=== PATIENT | female | born 1950 | race Hispanic/Latino ===

== ENCOUNTER 2016-03-02 09:24 | Outpatient (CLI) | payer MEDICARE, OTHER ==
[2016-03-02 12:58] LABS: ALT (SGPT) 73 U/L (0-55); AST (SGOT) 38 U/L (5-34); Alkaline Phosphatase 147 U/L (40-150); Anion Gap 15 mmol/L (10-20); BUN (Urea Nitrogen) 13 mg/dL (9.8-20.1); Bilirubin, Total 0.6 mg/dL (0.2-1.2); Calc. Creatinine Clearance 0 mL/min (70-130); Calcium 9.1 mg/dL (7.8-10.44); Carbon Dioxide 24 mmol/L (23-31); Chloride 105 mmol/L (98-107); Estimated GFR-MDRD 60; Globulin 2.8 g/dL (2.4-3.5); LDL Cholesterol, Calculated 165 mg/dL; Protein, Total 7.5 g/dL (5.8-8.1)
[2016-03-02 13:46] LABS: Bilirubin Negative (Negative); Blood, Urine Trace (Negative); Glucose, Urine (Dipstick) 500 mg/dL (Negative); Ketone, Urine Negative (Negative); Nitrite Negative (Negative); Protein, Urine (Dipstick) > or equal to 300 mg/dL (Neg-Trace); Urobilinogen 0.2 mg/dL (0.2-1.0)
[2016-03-02 14:07] LABS: Bacteria/HPF 1+ HPF (None Seen); RBC/HPF 0-3 HPF (0-3); Squamous Epithelial 21-50 HPF (0-3); WBC/HPF 0-3 HPF (0-3)
[2016-03-02 14:26] LABS: #Basophils 0.1 thou/uL (0.0-0.2); #Eosinphils 0.3 thou/uL (0.0-0.7); #Lymphocytes 2.8 thou/uL (1.20-3.40); #Monocytes 0.5 thou/uL (0.11-0.59); #Neutrophils 3.2 thou/uL (1.40-6.50); %Basophils 0.8 % (0.0-1.0); %Eosinophils 4.1 % (0.0-10.0); %Lymphocytes 41.7 % (21.0-51.0); %Monocytes 6.8 % (0.0-10.0); Hematocrit 41.9 % (36.0-47.0); Mean Platelet Volume 6.6 fL (7.4-10.4); Red Blood Cell (RBC) Count 4.54 mill/uL (4.20-5.40); White Blood Cell (WBC) Count 6.8 thou/uL (4.8-10.8)
[2016-03-02 14:58] LABS: Hemoglobin A1c 8.2 % (4.0-6.0)
[2016-03-02 19:06] LABS: Microalbumin Urine 2.5 mg/dL (0.5-50.0)
== END 2016-03-02 09:25 ==
LOC: NAVSJIPCSP 09:24
PROVIDERS: ATTEND Internal Medicine
DX: E78.2 Mixed hyperlipidemia (principal); E11.9 Type 2 diabetes mellitus without complications; Z79.899 Other long term (current) drug therapy
CPT/HCPCS: 36415; 80053; 80061; 81003; 81015; 82043; 82570; 83036; 85025

== ENCOUNTER 2016-05-19 08:50 | Emergency (ER) | payer MEDICARE, OTHER ==
[2016-05-19 09:39] LABS: Bilirubin Negative (Negative); Blood, Urine Trace (Negative); Clarity Clear (Clear); Glucose, Urine (Dipstick) 500 mg/dL (Negative); Leukocyte Negative (Negative); Nitrite Negative (Negative); Protein, Urine (Dipstick) 100 mg/dL (Neg-Trace); Urobilinogen 0.2 mg/dL (0.2-1.0); pH, Urine 5.5 (5.0-9.0)
[2016-05-19 09:50] LABS: #Basophils 0.1 thou/uL (0.0-0.2); #Eosinphils 0.2 thou/uL (0.0-0.7); #Lymphocytes 2.9 thou/uL (1.20-3.40); #Monocytes 0.5 thou/uL (0.11-0.59); #Neutrophils 3.1 thou/uL (1.40-6.50); %Basophils 1.1 % (0.0-1.0); %Eosinophils 2.9 % (0.0-10.0); %Lymphocytes 42.9 % (21.0-51.0); %Monocytes 6.8 % (0.0-10.0); %Neutrophils 46.3 % (42.0-75.0); Hemoglobin 13.6 g/dL (12.0-16.0); Mean Corpuscular HGB CONC 33.4 g/dL (32.0-36.0); Mean Corpuscular Hemoglobin 31.2 pg (27.0-31.0); Mean Corpuscular Volume 93.5 fl (81.0-99.0); Mean Platelet Volume 7.4 fL (7.4-10.4); Platelet Count 238 thou/uL (130-400); RBC Distribution Width 11.9 % (11.5-14.5); Red Blood Cell (RBC) Count 4.36 mill/uL (4.20-5.40); White Blood Cell (WBC) Count 6.8 thou/uL (4.8-10.8)
[2016-05-19 09:57] LABS: Specific Gravity, Urine 1.025 (1.002-1.036)
[2016-05-19 09:59] LABS: Bacteria/HPF Rare-Few HPF (None Seen); Other Microscopic Description NO; RBC/HPF 0-3 HPF (0-3); WBC/HPF 0-3 HPF (0-3)
[2016-05-19 10:00] LABS: ALT (SGPT) 35 U/L (0-55); AST (SGOT) 20 U/L (5-34); Albumin 4.5 g/dL (3.4-4.8); Alkaline Phosphatase 129 U/L (40-150); Anion Gap 16 mmol/L (10-20); BUN (Urea Nitrogen) 13 mg/dL (9.8-20.1); Bilirubin, Total 0.8 mg/dL (0.2-1.2); Calc. Creatinine Clearance 0 mL/min (70-130); Carbon Dioxide 24 mmol/L (23-31); Chloride 102 mmol/L (98-107); Estimated GFR-MDRD 57; Globulin 2.7 g/dL (2.4-3.5); Glucose 179 mg/dL (80-115); Lipase 37 U/L (8-78); Potassium 3.8 mmol/L (3.5-5.1); Protein, Total 7.2 g/dL (5.8-8.1); Sodium 138 mmol/L (136-145)
--- NOTE | 2016-05-19 11:02 | CT ---
CT ABDOMEN WITH IV CONTRAST CT PELVIS WITH IV CONTRAST: Date: 05/19/16 HISTORY: Left-sided abdominal pain. FINDINGS: There is linear atelectasis in the right middle lobe. Lung bases are otherwise clear. There are post cholecystectomy changes noted. Calcified granuloma seen in the spleen. A 1.2 cm low density lesion seen in the superior pole of the left kidney demonstrating an attenuatio n coefficient most consistent with a cyst. Kidneys otherwise have a normal CT appearance bilaterally . The liver, pancreas, bilateral adrenal glands, and decompressed urinary bladder, as well as uterus, demonstrate a normal CT appearance. Minimal vascular calcifications seen in the infrarenal abdominal aorta and involving the iliac arter ies. The appendix is visualized and normal in caliber. Small bowel loops are also normal in caliber. There is no free fluid, fluid collection, or lymphadenopathy seen in the abdomen or pelvis. Mild degenerative changes seen in the spine. IMPRESSION: 1. No acute findings are seen in the abdomen or pelvis. 2. Left renal cyst. 3. Post cholecystectomy changes. POS: KE[facility]
== END 2016-05-19 11:00 | disposition home or self-care (01) ==
LOC: NAV ERS 08:50
DX: R10.31 Right lower quadrant pain (principal); I10 Essential (primary) hypertension; E11.9 Type 2 diabetes mellitus without complications; E78.5 Hyperlipidemia, unspecified; E78.00 Pure hypercholesterolemia, unspecified; Z79.899 Other long term (current) drug therapy
CPT/HCPCS: 74177; 80053; 81003; 81015; 83690; 85025

== ENCOUNTER 2016-06-05 09:59 | Outpatient (CLI) | payer MEDICARE, OTHER ==
[2016-06-05 12:58] LABS: Cardiac Risk 3.6 (Less than 4.5)
[2016-06-05 13:25] LABS: Hemoglobin A1c 7.5 % (4.0-6.0)
== END 2016-06-05 10:00 ==
LOC: NAVSJIPCSP 09:59
PROVIDERS: ATTEND Internal Medicine
DX: E78.2 Mixed hyperlipidemia (principal); E11.9 Type 2 diabetes mellitus without complications
CPT/HCPCS: 36415; 80061; 83036

== ENCOUNTER 2016-09-08 08:12 | Outpatient (CLI) | payer MEDICARE, OTHER ==
[2016-09-08 13:32] LABS: Hemoglobin A1c 6.5 % (4.0-6.0)
== END 2016-09-08 08:13 | disposition home or self-care (01) ==
LOC: NAVSJIPCSP 08:12
PROVIDERS: ATTEND Internal Medicine
DX: E78.2 Mixed hyperlipidemia (principal); E11.29 Type 2 diabetes mellitus with other diabetic kidney complication; Z79.899 Other long term (current) drug therapy
CPT/HCPCS: 36415; 80061; 83036

== ENCOUNTER 2017-05-31 15:40 | Emergency (ER) | payer MEDICARE, MEDICAID | END 2017-05-31 17:09 | disposition left against medical advice (07) | LOC: NAV ERS 15:40 | DX: Z53.21 Procedure and treatment not carried out due to patient leaving prior to being seen by health care provider (principal) ==

== ENCOUNTER 2017-05-31 18:05 | Emergency (ER) | payer MEDICARE, MEDICAID ==
[2017-05-31] MEDS ORDERED: Adacel (T-DAP) 0.5 ML VIAL ONE (18:38)
[2017-05-31] MEDS ORDERED: Bacitracin Zinc 1 Packet ONE (18:39)
[2017-05-31] MEDS ORDERED: Ibuprofen 200 MG TAB ONE (19:01)
== END 2017-05-31 19:07 | disposition home or self-care (01) ==
LOC: NAV ERS 18:05
DX: S80.872A Other superficial bite, left lower leg, initial encounter (principal); I10 Essential (primary) hypertension; E11.9 Type 2 diabetes mellitus without complications; Z79.899 Other long term (current) drug therapy; Z79.84 Long term (current) use of oral hypoglycemic drugs; W54.0XXA Bitten by dog, initial encounter
CPT/HCPCS: 90471; 90715

== ENCOUNTER 2017-06-25 08:26 | Outpatient (CLI) | payer MEDICARE, OTHER ==
--- NOTE | 2017-06-25 09:13 | RAD ---
LEFT FOOT 3 VIEWS: Date: 06/25/17 HISTORY: Pain. No known injury. COMPARISON: None. FINDINGS: No fracture. No malalignment. Mild enthesopathic changes. Soft tissues are unremarkable. IMPRESSION: No acute abnormality. POS: [facility]
== END 2017-06-25 08:27 | disposition home or self-care (01) ==
LOC: NAV RAD 08:26
PROVIDERS: ATTEND Internal Medicine
DX: M79.672 Pain in left foot (principal)

== ENCOUNTER 2018-06-12 08:13 | Emergency (ER) | payer MEDICARE, MEDICAID ==
--- NOTE | 2018-06-12 09:08 | RAD ---
LEFT ANKLE THREE VIEWS: History: Left ankle pian, injury. FINDINGS: The ankle mortise is maintained. No acute fracture or dislocation is seen. There are small plantar an d posterior calcaneal spurs. POS: OFF
== END 2018-06-12 08:55 | disposition home or self-care (01) ==
LOC: NAV ERS 08:13
DX: S93.402A Sprain of unspecified ligament of left ankle, initial encounter (principal); E78.5 Hyperlipidemia, unspecified; I10 Essential (primary) hypertension; E11.9 Type 2 diabetes mellitus without complications; Z79.899 Other long term (current) drug therapy; Z79.84 Long term (current) use of oral hypoglycemic drugs; X50.9XXA Other and unspecified overexertion or strenuous movements or postures, initial encounter